=== PATIENT | female | born 1960 | race Caucasian/White ===

== ENCOUNTER 2022-07-20 21:09 | Emergency (ER) | payer OTHER, BC ==
[2022-07-20 21:25] VITALS: BMI 18.8
[2022-07-21] MEDS ORDERED: ALBUTEROL SO4 0.083% IH SOL 2.5 MG/3 ML VIAL.NEB. NEB ONE ×2 (00:06→00:24)
[2022-07-21 07:56] VITALS: RESP 18
[2022-07-21 10:57] VITALS: BP 121/67; PULSE 91; TEMP 99
== END 2022-07-21 11:05 ==
LOC: JER 21:09
DX: J95.03 Malfunction of tracheostomy stoma (principal)
CPT/HCPCS: 71045-TC-FY; 93005; 93010; 99284-25